=== PATIENT | male | born 1960 | race Caucasian/White ===

== ENCOUNTER 2017-05-28 06:58 | Emergency (ER) | payer MEDICAID, OTHER ==
[~2017-05-28] VITALS: Ht 188 cm; Wt 84.1 kg
[~2017-05-28 06:58] MED LIST: GABA-530 PO
[2017-05-28 08:50] VITALS: BP 147/75
[2017-05-28] MEDS ORDERED: cyclobenzaprine 10mg tablet PO ONE (09:35)
[2017-05-28] MEDS ORDERED: ondansetron 4mg rapidly disintigrating tab PO ONE (09:35)
== END 2017-05-28 10:19 | disposition left against medical advice (07) ==
LOC: ER 06:58
DX: M54.5 Low back pain (principal); I10 Essential (primary) hypertension; G89.29 Other chronic pain; F17.200 Nicotine dependence, unspecified, uncomplicated; F12.10 Cannabis abuse, uncomplicated; F10.10 Alcohol abuse, uncomplicated; Z88.5 Allergy status to narcotic agent; Z79.899 Other long term (current) drug therapy; Z85.9 Personal history of malignant neoplasm, unspecified; Z88.8 Allergy status to other drugs, medicaments and biological substances
CPT/HCPCS: 72100; 99284

== ENCOUNTER 2017-08-26 10:47 | Emergency (ER) | payer MEDICAID ==
[~2017-08-26] VITALS: Ht 188 cm; Wt 85.0 kg
[~2017-08-26 10:47] MED LIST changes: +BENA10TA10; +CARV25TA PO; +FAMO-128 PO; +FOLI1TAB16; +HCTZ25T; +PYRI25TA3 PO
[2017-08-26] MEDS ORDERED: thiamine 100mg/ml 2ml inj. IV ONE (11:50)
[2017-08-26] MEDS ORDERED: normal saline 1000ML IV soln IVB ONE (11:50)
[2017-08-26 12:05] LABS: BASOPHILS % (AUTO) 0.5 % (0-1); EOSINOPHILS % (AUTO) 0.3 % (0-6); HEMATOCRIT 39.4 % (42.0-52.0); HEMOGLOBIN 13.9 g/dl (14.0-17.9); LYMPHOCYTES # (AUTO) 2.2 X10'3 (1.1-4.8); LYMPHOCYTES % (AUTO) 27.7 % (21-51); MEAN CORPUSCULAR HEMOGLOBIN 33.4 PG (27.0-31.0); MEAN CORPUSCULAR HGB CONC 35.4 % (33.0-36.5); MEAN CORPUSCULAR VOLUME 94.4 FL (78-98); MEAN PLATELET VOLUME 6.8 FL (7.4-10.4); MONOCYTES # (AUTO) 0.3 X10'3 (0-0.9); MONOCYTES % (AUTO) 3.7 % (2-12); NEUTROPHILS # (AUTO) 5.4 X10'3 (1.8-7.7); NEUTROPHILS % (AUTO) 67.8 % (42-75); PLATELET COUNT 616 X10'3 (140-440); RED BLOOD COUNT 4.17 X10'6 (4.70-6.10); RED CELL DISTRIBUTION WIDTH 15.9 % (11.5-14.5)
[2017-08-26] MEDS ORDERED: iohexol 300mg/ml 100ml inj. ONE (12:15)
[2017-08-26 12:16] LABS: ALANINE AMINOTRANSFERASE 35 U/L (12-78); ALBUMIN 3.2 G/DL (3.4-5.0); ALBUMIN/GLOBULIN RATIO 0.9 (1.1-1.5); ALKALINE PHOSPHATASE 88 IU/L (46-116); ANION GAP 12 (8-16); ASPARTATE AMINO TRANSFERASE 35 U/L (10-37); BILIRUBIN,TOTAL 0.5 MG/DL (0.1-1.0); BLOOD UREA NITROGEN 9 MG/DL (7-18); BUN/CREATININE RATIO 12.7 (5.4-32.0); CALCIUM 8.5 MG/DL (8.5-10.1); CHLORIDE 99 MMOL/L (99-107); CREATININE 0.71 MG/DL (0.60-1.10); GLUCOSE 104 MG/DL (70-104); MAGNESIUM 1.7 MG/DL (1.5-2.4); PHOSPHORUS 3.2 MG/DL (2.3-4.5); POTASSIUM 3.6 MMOL/L (3.5-5.1); SODIUM 136 MMOL/L (135-145); TOTAL PROTEIN 6.8 G/DL (6.4-8.2); eGFR > 90 ML/MIN
[2017-08-26] MEDS ORDERED: fentaNYL/PF 50MCG/1 ML 2ML syringe IV ONE (14:40)
[2017-08-26] MEDS: LORazepam 1 MG tablet PO PRN ×2 (16:41→20:03)
[2017-08-26 17:26] LABS: URINE AMPHETAMINE SCREEN NEGATIVE (Neg); URINE BARBITUATE SCREEN NEGATIVE (Neg); URINE BENZODIAZEPINES SCREEN NEGATIVE (Neg); URINE CANNABINOID SCREEN POSITIVE (Neg); URINE COCAINE SCREEN NEGATIVE (Neg); URINE METHADONE SCREEN NEGATIVE (Neg); URINE OPIATE SCREEN NEGATIVE (Neg); URINE PHENCYCLIDINE SCREEN NEGATIVE (Neg)
[2017-08-27] MEDS: LORazepam 1 MG tablet PO PRN ×7 (01:31→18:04)
[2017-08-27] MEDS: acetaminophen 325mg tablet PO PRN ×3 (01:32→18:04)
[2017-08-27 05:44] VITALS: BP 192/117
[2017-08-27] MEDS: gabapentin 300mg capsule PO SCH ×2 (10:43→13:03)
== END 2017-08-27 18:40 ==
LOC: ER 10:47
DX: C64.1 Malignant neoplasm of right kidney, except renal pelvis (principal); R45.851 Suicidal ideations; F12.90 Cannabis use, unspecified, uncomplicated; I10 Essential (primary) hypertension; G89.29 Other chronic pain; Z88.5 Allergy status to narcotic agent; Z79.899 Other long term (current) drug therapy; Z98.890 Other specified postprocedural states
CPT/HCPCS: 36415; 70450; 74177; 80053; 80305; 80320; 83735; 84100; 84484; 85025; 96374; 96375; 99285; J3010; J3411; J7030; Q9967

== ENCOUNTER 2018-02-23 03:38 | Emergency (ER) | payer MEDICAID ==
[~2018-02-23] VITALS: Ht 188 cm; Wt 81.0 kg
[2018-02-23] MEDS ORDERED: phenobarbital inj 260 MG in normal saline 100ml IV soln 99 ML IV STA (03:48)
[2018-02-23] MEDS ORDERED: magnesium oxide 400mg tablet PO ONE (03:50)
[2018-02-23] MEDS ORDERED: ondansetron/PF 4mg/2ml inj IV ONE (03:50)
[2018-02-23] MEDS ORDERED: thiamine 100mg tablet PO ONE (03:50)
[2018-02-23] MEDS ORDERED: normal saline 1000ML IV soln IVB ONE (03:50)
[2018-02-23 04:06] LABS: CLARITY,URINE CLEAR (Clear); COLOR,URINE YELLOW (Yellow); GLUCOSE, URINE NEGATIVE (Neg); KETONES,URINE NEGATIVE (Neg); LEUKOCYTE ESTERASE ,URINE TRACE (Neg); NITRITES, URINE NEGATIVE (Neg); OCCULT BLOOD,URINE SMALL (Neg); PROTEIN,URINE 30 mg/dl (Neg); UROBILINOGEN,URINE 0.2 E.U/dL (0.2-1.0)
[2018-02-23 04:19] LABS: UA COLLECTION TYPE CLN CATCH MIDSTREAM; URINE AMPHETAMINE SCREEN NEGATIVE (Neg); URINE BARBITUATE SCREEN NEGATIVE (Neg); URINE BENZODIAZEPINES SCREEN NEGATIVE (Neg); URINE CANNABINOID SCREEN POSITIVE (Neg); URINE COCAINE SCREEN NEGATIVE (Neg); URINE METHADONE SCREEN NEGATIVE (Neg); URINE OPIATE SCREEN NEGATIVE (Neg); URINE PHENCYCLIDINE SCREEN NEGATIVE (Neg)
[2018-02-23 04:21] LABS: BACTERIA,URINE FEW /HPF (Neg); SQUAMOUS EPITHELIAL CELL,UR FEW /LPF (FEW); WBC,URINE 0-4 /HPF (0-4)
[2018-02-23 04:22] LABS: MUCUS STRANDS FEW /LPF (Neg); WBC CLUMPS,URINE FEW /HPF (NEGATIVE)
[2018-02-23 04:48] LABS: HEMOGLOBIN 15.6 g/dl (14.0-17.9); MEAN CORPUSCULAR HEMOGLOBIN 32.1 PG (27.0-31.0); MEAN CORPUSCULAR HGB CONC 34.6 % (33.0-36.5); MEAN CORPUSCULAR VOLUME 92.8 FL (78-98); MEAN PLATELET VOLUME 7.4 FL (7.4-10.4); PLATELET COUNT 283 X10'3 (140-440); RED BLOOD COUNT 4.85 X10'6 (4.70-6.10); RED CELL DISTRIBUTION WIDTH 15.5 % (11.5-14.5)
[2018-02-23 05:04] LABS: ALANINE AMINOTRANSFERASE 26 U/L (12-78); ALBUMIN/GLOBULIN RATIO 1.1 (1.1-1.5); ALKALINE PHOSPHATASE 83 IU/L (46-116); ANION GAP 12 (8-16); ASPARTATE AMINO TRANSFERASE 42 U/L (10-37); BILIRUBIN,TOTAL 0.8 MG/DL (0.1-1.0); BLOOD UREA NITROGEN 9 MG/DL (7-18); CALCIUM 9.4 MG/DL (8.5-10.1); CHLORIDE 94 MMOL/L (99-107); CREATININE 0.75 MG/DL (0.60-1.10); GLUCOSE 97 MG/DL (70-104); SODIUM 132 MMOL/L (135-145); TOTAL CARBON DIOXIDE 25.9 MMOL/L (24-32); TOTAL PROTEIN 7.6 G/DL (6.4-8.2); eGFR > 90 ML/MIN
[2018-02-23 05:13] LABS: ETHANOL 0.032 GM/DL (0.0-0.010); MAGNESIUM 1.8 MG/DL (1.5-2.4)
[2018-02-23 05:16] LABS: TOTAL CELLS COUNTED 100
[2018-02-23 05:17] LABS: PLATELET ESTIMATE NORMAL
[2018-02-23] MEDS ORDERED: chlordiazePOXIDE 25mg capsule PO ONE (06:45)
[2018-02-23] MEDS ORDERED: benzonatate 100mg capsule PO ONE (09:25)
[2018-02-23] MEDS ORDERED: LORazepam 2 mg/ml vial IV ONE ×2 (09:40→14:35)
[2018-02-23] MEDS ORDERED: amLODIPine 5mg tablet PO ONE (16:05)
[2018-02-23] MEDS: thiamine 100mg tablet PO SCH (16:06)
[2018-02-23] MEDS ORDERED: polyethylene glycol 3350 17gm powd pack PO STA (16:58)
[2018-02-23] MEDS ORDERED: docusate sod 100mg capsule PO ONE (17:00)
[2018-02-23] MEDS ORDERED: HYDROcodone/acetaminophen 5mg/325mg tablet PO ONE (17:00)
[2018-02-23] MEDS: LORazepam 1 MG tablet PO PRN ×3 (17:21→23:34)
[2018-02-23] MEDS ORDERED: CARV25TA3 (17:38)
[2018-02-23] MEDS ORDERED: FAMO20TA8 (17:38)
[2018-02-23] MEDS ORDERED: BENA10TA74 (17:38)
[2018-02-23] MEDS ORDERED: NAPR-996 (17:38)
[2018-02-23] MEDS ORDERED: GABA-532 (17:38)
[2018-02-23] MEDS: carVEDilol 12.5mg tablet PO SCH (20:12)
[2018-02-23] MEDS: gabapentin 300mg capsule PO SCH (20:13)
[2018-02-23] MEDS ORDERED: traMADol 50MG tablet PO ONE (21:20)
[2018-02-24] MEDS ORDERED: quetiapine 100mg tablet PO ONE (00:55)
[2018-02-24] MEDS: LORazepam 1 MG tablet PO PRN ×4 (04:57→20:09)
[2018-02-24] MEDS ORDERED: famotidine 20mg tablet PO SCH (08:00)
[2018-02-24] MEDS: naproxen 500mg tablet PO SCH ×2 (08:19→17:30)
[2018-02-24] MEDS: carVEDilol 12.5mg tablet PO SCH ×2 (08:20→19:59)
[2018-02-24] MEDS: gabapentin 300mg capsule PO SCH ×2 (08:41→13:44)
[2018-02-24] MEDS: thiamine 100mg tablet PO SCH (08:41)
[2018-02-24] MEDS ORDERED: haloperidol lactate 5mg/ml inj IM ONE (12:35)
[2018-02-24 17:57] VITALS: BP 134/89
== END 2018-02-24 20:14 ==
LOC: ER 03:38
DX: R45.851 Suicidal ideations (principal); J20.9 Acute bronchitis, unspecified; F10.230 Alcohol dependence with withdrawal, uncomplicated; F12.90 Cannabis use, unspecified, uncomplicated; F20.9 Schizophrenia, unspecified; I10 Essential (primary) hypertension; G89.29 Other chronic pain; F17.210 Nicotine dependence, cigarettes, uncomplicated; Z98.890 Other specified postprocedural states; Z59.0 Homelessness; Z88.5 Allergy status to narcotic agent; Z88.8 Allergy status to other drugs, medicaments and biological substances; Z79.899 Other long term (current) drug therapy; Z88.6 Allergy status to analgesic agent; Y90.0 Blood alcohol level of less than 20 mg/100 ml
CPT/HCPCS: 36415; 71045; 80053; 80305; 80320; 81001; 82948; 83735; 84443; 85025; 93005; 96372; 96374; 96375; 96376; 99285; J1630; J2060; J2405; J2560; J7030

== ENCOUNTER 2018-05-25 21:22 | Emergency (ER) | payer MEDICAID ==
[~2018-05-25 21:22] MED LIST changes: -BENA10TA10; -CARV25TA PO; +CARV25TA3; -FAMO-128 PO; +FAMO20TA8; -FOLI1TAB16; -GABA-530 PO; +GABA-532; -HCTZ25T; +NAPR-996; -PYRI25TA3 PO
== END 2018-05-25 23:51 | disposition left against medical advice (07) ==
LOC: ER 21:23
DX: R10.9 Unspecified abdominal pain (principal); Z53.21 Procedure and treatment not carried out due to patient leaving prior to being seen by health care provider

== ENCOUNTER 2018-05-28 12:28 | Emergency (ER) | payer MEDICAID ==
[~2018-05-28] VITALS: Ht 183.5 cm; Wt 77.3 kg
[2018-05-28 12:52] VITALS: BP 139/82
--- NOTE | 2018-05-28 13:01 | NUR ---
pt arrived to ER overflow RM 20 with [employer] and security. Pt assessed and medically cleared by Dr. Garcia to be sent to [facility] with [employer]. [employer] spoke with Dr. Guardado at bedside.
== END 2018-05-28 13:06 ==
LOC: ER 12:29
DX: F10.129 Alcohol abuse with intoxication, unspecified (principal); I10 Essential (primary) hypertension; G89.29 Other chronic pain; M54.9 Dorsalgia, unspecified; F12.90 Cannabis use, unspecified, uncomplicated; Z59.0 Homelessness; Z88.6 Allergy status to analgesic agent
CPT/HCPCS: 99283

== ENCOUNTER 2018-09-13 17:41 | Emergency (ER) | payer MEDICAID ==
[~2018-09-13] VITALS: Ht 188 cm; Wt 77.3 kg
[~2018-09-13 17:41] MED LIST changes: -CARV25TA3; +CIPR-230 PO; -FAMO20TA8; -GABA-532; +HYDR-3965 PO; +HYDR-4069 PO; +MULT-1141 PO; -NAPR-996; +PANT40TA4 PO
[2018-09-13 18:10] VITALS: BP 155/113
[2018-09-13] MEDS ORDERED: CYCL-1 PO (19:30)
[2018-09-13] MEDS ORDERED: HYDROcodone/acetaminophen 10/325mg tab PO ONE (19:35)
--- NOTE | 2018-09-13 19:40 | NUR ---
pt escorted out of er by security after verbally abusing staff by saying "fuck you bitch." pt seen walking down [address] with steady gait after refusing to walk from fast track
--- NOTE | 2018-09-13 19:47 | NUR ---
PT WAS WHEELED OUT IN A WHEEL CHAIR BY MUKUL HARE, PT IS YELLING "THAT IS NOT A REAL DR, THEY GAVE ME STRONG DRUGS LAST NIGHT AT [facility]" JAIME GOODWIN GAVE ME DC INSTRUCTIONS I WENT TO GIVE THEM TO PT AND HE WAS ON THE SIDEWALK, WALKING DOWN THE SIDEWALK. PT AMBULATED WITH STEADY GAIT.
--- NOTE | 2018-09-13 19:47 | NUR ---
PT IS BEING VERBALLY ABUSIVE TO STAFF AND REPORTING "I CAN'T WALK" SECURITY IS ON STANDBY SO JAIME GOODWIN CAN ASSESS PT. PT IS YELLING SAYING "I GOT FENTANYL LAST NIGHT AT [facility] WHY CAN'T YOU GIVE ME THAT? WHY ARE YOU ONLY GIVING ME NORCO?" PT WILL NOT BE QUIET I HAVE REPEATEDLY ASKED HIM TO CALM DOWN, AND EXPLAINDED THAT THERE ARE OTHER PEOPLE IN ER AND PT REFUSED. PT STATES "I WANT OUT OF HERE, I WILL GO BUY MY DRUGS AT THE PARK, FUCK YOU GUYS."
--- NOTE | 2018-09-13 19:50 | NUR ---
LEFT MESSAGE FOR PT TO CALL REGARDING RX AND DC INSTRUCTIONS.
== END 2018-09-13 19:52 | disposition home or self-care (01) ==
LOC: ER 17:42
DX: G89.29 Other chronic pain (principal); M54.5 Low back pain; I10 Essential (primary) hypertension; F12.90 Cannabis use, unspecified, uncomplicated; F11.90 Opioid use, unspecified, uncomplicated; Z98.890 Other specified postprocedural states; Z88.6 Allergy status to analgesic agent; Z88.5 Allergy status to narcotic agent; Z79.899 Other long term (current) drug therapy; Z59.0 Homelessness; Z60.2 Problems related to living alone
CPT/HCPCS: 99284

== ENCOUNTER 2018-10-26 07:45 | Day surgery (SDC) | payer MEDICAID ==
[2018-10-25 16:09] LABS: LYMPHOCYTES % (AUTO) 40.1 % (21-51); MONOCYTES # (AUTO) 0.6 X10'3 (0-0.9); PRE OP HEMOGLOBIN 14.1 g/dL (14.0-17.9)
[2018-10-25 16:11] LABS: BASOPHILS # (AUTO) 0.1 X10'3 (0-0.2); BASOPHILS % (AUTO) 0.9 % (0-1); EOSINOPHILS # (AUTO) 0.3 X10'3 (0-0.9); EOSINOPHILS % (AUTO) 4.6 % (0-6); MEAN CORPUSCULAR HEMOGLOBIN 31.2 PG (27.0-31.0); MEAN CORPUSCULAR HGB CONC 33.8 g/dL (33.0-36.5); MEAN CORPUSCULAR VOLUME 92.3 FL (78-98); MEAN PLATELET VOLUME 6.9 FL (7.4-10.4); MONOCYTES % (AUTO) 7.5 % (2-12); NEUTROPHILS # (AUTO) 3.5 X10'3 (1.8-7.7); NEUTROPHILS % (AUTO) 46.9 % (42-75); PRE OP HEMATOCRIT 41.6 % (42.0-52.0); PRE OP PLATELET COUNT 310 X10'3 (140-440); RED BLOOD COUNT 4.51 X10'6 (4.70-6.10); RED CELL DISTRIBUTION WIDTH 15.2 % (11.5-14.5)
[2018-10-25 16:23] LABS: ALBUMIN 3.8 G/DL (3.4-5.0); ALBUMIN/GLOBULIN RATIO 1.2 (1.1-1.5); ALKALINE PHOSPHATASE 60 IU/L (46-116); BLOOD UREA NITROGEN 7 MG/DL (7-18); BUN/CREATININE RATIO 9.1 (5.4-32.0); CALCIUM 8.9 MG/DL (8.5-10.1); CHLORIDE 102 MMOL/L (99-107); CREATININE 0.77 MG/DL (0.60-1.10); PRE OP ALT 14 U/L (30-65); PRE OP ANION GAP 7 (8-16); PRE OP AST 17 U/L (10-37); PRE OP BILIRUB, TOTAL 0.4 MG/DL (0.0-1.0); PRE OP GLUCOSE 94 MG/DL (70-104); PRE OP SODIUM 138 MMOL/L (135-145); TOTAL CARBON DIOXIDE 28.6 MMOL/L (24-32); TOTAL PROTEIN 6.9 G/DL (6.4-8.2); eGFR > 90 ML/MIN
[2018-10-25 16:29] LABS: PRE OP POTASSIUM 3.3 MMOL/L (3.4-5.1)
[2018-10-25 16:56] LABS: PRE OP PROTIME 10.6 SECONDS (9.0-12.0)
[2018-10-26] VITALS (25 sets, daily range): BP systolic 139–181; BP diastolic 66–116
[~2018-10-26] VITALS: Ht 188 cm; Wt 91.0 kg
[~2018-10-26 07:45] MED LIST changes: +ALBU6.7H9 INH; -CIPR-230 PO; +CYCL-1 PO; -HYDR-3965 PO; +HYDR-4353 PO
[2018-10-26] MEDS ORDERED: cefazolin/dext.iso 2gm/100 ML IV ONE (09:00)
[2018-10-26] MEDS ORDERED: famotidine 20mg tablet PO ONE (09:00)
[2018-10-26] MEDS ORDERED: ringers solution, lacted 1,000 ML IV SCH ×2 (09:00→10:36)
[2018-10-26] MEDS ORDERED: HYDROcodone/acetaminophen 10/325mg tab PO ONE (09:25)
--- NOTE | 2018-10-26 10:05 | NUR ---
CURRENTLY STATES ADEQUATE PAIN RELIEF, 5/10 LBP, POST NORCO PO TAKES AT HOME. "I ALWAYS HAVE PAIN"
[2018-10-26] MEDS ORDERED: BUPIVAcaine/PF 2.5 mg/ml (0.25%) 30ml vial ONE (10:11)
[2018-10-26] MEDS ORDERED: LIDOcaine 1% 30ml preserv. free vial ONE (10:11)
[2018-10-26] MEDS ORDERED: meperidine/PF 25mg/ml syringe IV PRN (10:40)
[2018-10-26] MEDS ORDERED: proCHLORperazine 10 MG/2 ml inj IV PRN (10:40)
[2018-10-26] MEDS ORDERED: HYDROmorphone inj. 0.5 MG/0.5 ML DISP.SYRIN IV PRN ×2 (10:40)
[2018-10-26] MEDS ORDERED: ondansetron/PF 4mg/2ml inj IV PRN ×2 (10:40→13:50)
[2018-10-26] MEDS ORDERED: acetaminophen 1,000mg/100ml IV 100 ML IV PRN (10:40)
[2018-10-26] MEDS ORDERED: sevoflurane 250ml liquid IH ONE (11:14)
[2018-10-26] MEDS ORDERED: ondansetron/PF 4mg/2ml inj ONE (11:14)
[2018-10-26] MEDS ORDERED: dexamethasone sod phosphate 10mg/ml inj ONE (11:14)
[2018-10-26] MEDS ORDERED: fentaNYL /PF 50mcg/ml 5ml ampule ONE (11:18)
[2018-10-26] MEDS ORDERED: midazolam 2 mg/2 ml injection ONE (11:18)
[2018-10-26] MEDS ORDERED: propofol inj 20 ML IV ONE (11:20)
[2018-10-26] MEDS ORDERED: ketorolac trometh. 30mg/ml inj. ONE (11:49)
[2018-10-26] MEDS ORDERED: ROPIVAcaine 0.5% (5mg/ml) 30ml vial ONE (11:49)
[2018-10-26] MEDS ORDERED: HYDR-4353 PO (11:54)
[2018-10-26] MEDS ORDERED: FAMO-128 PO (11:54)
[2018-10-26] MEDS ORDERED: glycopyrrolate 0.2mg/ml inj ONE (13:20)
[2018-10-26] MEDS ORDERED: rocuronium 10mg/ml inj IV ONE (13:20)
[2018-10-26] MEDS ORDERED: neostigmine methylsulfate 1 MG/ML 10ml vial ONE (13:20)
--- NOTE | 2018-10-26 13:28 | NUR ---
Received from OR via [facility], accompanied by Anesthesiologist DR ARSHAD and report given by Anesthesiologist. PT VERY DROWSY, NO S/S OF DISTRESS/DISCOMFORT, PT W/LARGE ABDOMINAL BINDER COVERING 3 ABDOMINAL INCISIONS, CDI. Addendum: 10/26/18 at 1350 by Yamilka Downing RN Amended: Links added.
[2018-10-26] MEDS ORDERED: oxyCODONE/APAP 5-325mg tablet PO PRN ×2 (13:50)
[2018-10-26] MEDS ORDERED: albuterol 2.5 MG/3 ML nebule NEB PRN (14:00)
[2018-10-26] MEDS: meperidine/PF 25mg/ml syringe IV PRN ×4 (14:21→15:07)
[2018-10-26] MEDS ORDERED: hydrALAZINE 20mg/ml inj. IV PRN (15:10)
[2018-10-26] MEDS: HYDROmorphone/NS 1 mg/ml CADD 50 ML IV SCH ×5 (15:43→23:00)
--- NOTE | 2018-10-26 15:58 | NUR ---
Report called to receiving nurse. Transferred via BED, 1 BAG OF PT EDIE Nathan BACKPACK SENT W/PT TO [facility], RECEIVING RN AT BEDSIDE TO RECEIVE PT, BLL, CALL LIGHT GIVEN, SIDE RAILS UP X 2. Special Issues communicated to receiving nurse. YES. Addendum: 10/26/18 at 1608 by Yamilka Downing RN Amended: Links added.
[2018-10-26] MEDS: Potassium Cl inj 20 MEQ in ringers solution, lacted 1,000 ML IV SCH ×2 (17:34→21:53)
--- NOTE | 2018-10-26 18:10 | NUR ---
Patient in room [facility]. I have received report from CORRINE Taylor and had the opportunity to ask questions and assume patient care.
[2018-10-27] VITALS: BP 152/111
[2018-10-27] MEDS: Potassium Cl inj 20 MEQ in ringers solution, lacted 1,000 ML IV SCH ×2 (00:50→10:49)
[2018-10-27] MEDS: HYDROmorphone/NS 1 mg/ml CADD 50 ML IV SCH ×4 (01:00→06:53)
[2018-10-27] MEDS ORDERED: ketorolac trometh. 30mg/ml inj. IV ONE (04:20)
--- NOTE | 2018-10-27 06:29 | NUR ---
Problems reprioritized. Patient report given, questions answered & plan of care reviewed with CORRINE Taylor.
[2018-10-27] MEDS ORDERED: CADD PCA waste documentation MC SCH (07:00)
[2018-10-27 08:00] VITALS: BP 191/128
[2018-10-27] MEDS ORDERED: famotidine 20mg tablet PO SCH (08:00)
--- NOTE | 2018-10-27 12:50 | NUR ---
Dr. Hayden phoned stating pt may be discharged and can f[facility]u [facility]. Percocet Rx has been provided. CORRINE Taylor notified.
[2018-10-27] MEDS ORDERED: PER5325T PO (12:57)
== END 2018-10-27 15:10 | disposition home or self-care (01) ==
LOC: PAS 07:45 → SUR 3N 13:48 → PAS 10-27 15:10
PROVIDERS: ATTEND Surgery
DX: K43.2 Incisional hernia without obstruction or gangrene (principal); G89.29 Other chronic pain; I10 Essential (primary) hypertension; I25.2 Old myocardial infarction; Z85.528 Personal history of other malignant neoplasm of kidney; Z86.11 Personal history of tuberculosis; Z86.19 Personal history of other infectious and parasitic diseases; Z98.890 Other specified postprocedural states; Z90.5 Acquired absence of kidney; Z88.8 Allergy status to other drugs, medicaments and biological substances; Z88.5 Allergy status to narcotic agent; F17.210 Nicotine dependence, cigarettes, uncomplicated; Z72.89 Other problems related to lifestyle; Z79.899 Other long term (current) drug therapy; Z79.01 Long term (current) use of anticoagulants; Z82.49 Family history of ischemic heart disease and other diseases of the circulatory system
CPT/HCPCS: 36415; 49656; 64488; 80053; 82948; 85025; 85610; 85730; 87081; 93005; 94760; C1781; J0131; J0360; J0780; J1100; J1885; J2001; J2175; J2250; J2405; J2704; J2710; J3010; J3480; J3490; J7120; S2900; A4215; A4618; G0378; J1170; J2795

== ENCOUNTER 2018-11-11 12:16 | Emergency (ER) | payer MEDICAID ==
[~2018-11-11] VITALS: Ht 188 cm; Wt 92.7 kg
[~2018-11-11 12:16] MED LIST changes: -CYCL-1 PO; +FAMO-128 PO; -HYDR-4069 PO; -MULT-1141 PO; -PANT40TA4 PO; +PER5325T PO
[2018-11-11] MEDS ORDERED: fentaNYL/PF 50MCG/1 ML 2ML syringe IV ONE ×2 (13:15→14:40)
[2018-11-11] MEDS ORDERED: ondansetron/PF 4mg/2ml inj IV ONE (13:15)
[2018-11-11] MEDS ORDERED: normal saline 1000ml 1,000 ML IV ONE (13:20)
[2018-11-11] MEDS ORDERED: iohexol 300mg/ml 100ml inj. ONE (13:27)
[2018-11-11 13:53] LABS: CLARITY,URINE SLIGHTLY CLOUDY (Clear); GLUCOSE, URINE NEGATIVE (Neg); KETONES,URINE TRACE mg/dl (Neg); LEUKOCYTE ESTERASE ,URINE NEGATIVE (Neg); NITRITES, URINE NEGATIVE (Neg); OCCULT BLOOD,URINE NEGATIVE (Neg); PH,URINE 6.5 (4.8-8.0); PROTEIN,URINE TRACE mg/dl (Neg)
[2018-11-11 13:55] LABS: UA COLLECTION TYPE VOIDED
[2018-11-11 13:56] LABS: COLOR,URINE AMBER (Yellow)
[2018-11-11 14:04] LABS: MUCUS STRANDS MODERATE /LPF (Neg)
[2018-11-11 14:05] LABS: BACTERIA,URINE 1+ /HPF (Neg); WBC CLUMPS,URINE FEW /HPF (NEGATIVE)
[2018-11-11 14:06] LABS: CAL OXALATE CRYSTALS 2+ /HPF (NEGATIVE); FINE GRANULAR CAST 0-3 /LPF (NEGATIVE); HYALINE CASTS 0-3 /LPF (NEGATIVE)
[2018-11-11 14:07] LABS: SQUAMOUS EPITHELIAL CELL,UR MODERATE /LPF (FEW)
[2018-11-11 14:09] LABS: ALANINE AMINOTRANSFERASE 14 U/L (12-78); ALBUMIN 3.5 G/DL (3.4-5.0); ALKALINE PHOSPHATASE 64 IU/L (46-116); ANION GAP 6 (8-16); ASPARTATE AMINO TRANSFERASE 12 U/L (10-37); BILIRUBIN,TOTAL 0.4 MG/DL (0.1-1.0); BLOOD UREA NITROGEN 8 MG/DL (7-18); BUN/CREATININE RATIO 10.3 (5.4-32.0); CALCIUM 9.1 MG/DL (8.5-10.1); CHLORIDE 103 MMOL/L (99-107); CREATININE 0.78 MG/DL (0.60-1.10); ETHANOL < 0.010 GM/DL (0.0-0.010); GLUCOSE 97 MG/DL (70-104); LIPASE 263 U/L (73-393); POTASSIUM 3.6 MMOL/L (3.5-5.1); SODIUM 140 MMOL/L (135-145); TOTAL CARBON DIOXIDE 31.4 MMOL/L (24-32); eGFR > 90 ML/MIN
[2018-11-11 14:09] LABS: URINE AMPHETAMINE SCREEN NEGATIVE (Neg); URINE BARBITUATE SCREEN NEGATIVE (Neg); URINE BENZODIAZEPINES SCREEN NEGATIVE (Neg); URINE CANNABINOID SCREEN POSITIVE (Neg); URINE COCAINE SCREEN NEGATIVE (Neg); URINE METHADONE SCREEN NEGATIVE (Neg); URINE OPIATE SCREEN NEGATIVE (Neg); URINE PHENCYCLIDINE SCREEN NEGATIVE (Neg)
[2018-11-11 14:25] LABS: BASOPHILS # (AUTO) 0.1 X10'3 (0-0.2); MONOCYTES % (AUTO) 9.6 % (2-12); NEUTROPHILS # (AUTO) 4.3 X10'3 (1.8-7.7)
[2018-11-11 14:27] LABS: EOSINOPHILS # (AUTO) 0.7 X10'3 (0-0.9); EOSINOPHILS % (AUTO) 9.5 % (0-6); HEMATOCRIT 39.9 % (42.0-52.0); HEMOGLOBIN 13.6 g/dl (14.0-17.9); LYMPHOCYTES # (AUTO) 1.8 X10'3 (1.1-4.8); LYMPHOCYTES % (AUTO) 23.6 % (21-51); MEAN CORPUSCULAR HEMOGLOBIN 31.7 PG (27.0-31.0); MEAN CORPUSCULAR HGB CONC 34.1 g/dL (33.0-36.5); MEAN CORPUSCULAR VOLUME 93.1 FL (78-98); MEAN PLATELET VOLUME 7.1 FL (7.4-10.4); MONOCYTES # (AUTO) 0.7 X10'3 (0-0.9); NEUTROPHILS % (AUTO) 56.3 % (42-75); PLATELET COUNT 384 X10'3 (140-440); RED BLOOD COUNT 4.29 X10'6 (4.70-6.10); RED CELL DISTRIBUTION WIDTH 15.2 % (11.5-14.5); WHITE BLOOD COUNT 7.7 X10'3 (4.5-11.0)
[2018-11-11] MEDS ORDERED: HYDR-3965 PO (14:55)
== END 2018-11-11 15:17 | disposition home or self-care (01) ==
LOC: ER 12:16
DX: G89.18 Other acute postprocedural pain (principal); I10 Essential (primary) hypertension; G89.29 Other chronic pain; F12.90 Cannabis use, unspecified, uncomplicated; F11.90 Opioid use, unspecified, uncomplicated; Z59.0 Homelessness; Z98.890 Other specified postprocedural states; Z88.6 Allergy status to analgesic agent; Z88.5 Allergy status to narcotic agent; Z79.899 Other long term (current) drug therapy
CPT/HCPCS: 36415; 74177; 80053; 80305; 80320; 81001; 83605; 83690; 85025; 87088; 96374; 96375; 96376; 99284; J2405; J3010; J7030; Q9967